=== PATIENT | female | born 1980 | race Caucasian/White ===

== ENCOUNTER 2016-12-23 17:28 | Emergency (ER) | payer BC ==
[2016-12-23] MEDS ORDERED: GI Cocktail Oral Solution 30 ML PO ONE (17:41)
[2016-12-23 17:46] VITALS: BP 127/86
[2016-12-23] MEDS ORDERED: Sodium Chloride 0.9% 10 ML Syringe FLUSH PRN (17:49)
[2016-12-23] MEDS ORDERED: Sodium Chloride 0.9% 1,000 ML IV ONE (17:58)
[2016-12-23] MEDS ORDERED: Ondansetron 4 MG/2 ML SDV IVPUSH ONE (17:58)
[2016-12-23] MEDS ORDERED: Ketorolac 30 MG/ML SDV IVPUSH ONE (18:01)
[2016-12-23 18:47] LABS: CHLORIDE,CL 102 mmol/L (98-107); SODIUM,NA 139 mmol/L (136-145)
[2016-12-23] MEDS ORDERED: Iopamidol 612 MG/ML 100 ML Bottle IV ONE (18:52)
[2016-12-23] MEDS ORDERED: Sodium Chloride 0.9% 100 ML IV ONE (18:52)
[2016-12-23] MEDS ORDERED: Morphine 2 MG/ML Syringe IVPUSH ONE (18:57)
[2016-12-23] MEDS ORDERED: Metoclopramide 10 MG Tab ONE (19:00)
--- NOTE | 2016-12-23 20:27 | EDM.PDOC ---
ED HPI GENERAL MEDICAL PROBLEM - General Chief Complaint: Gastrointestinal Problem Time Seen by Provider: 12/23/16 17:49 - History of Present Illness INITIAL COMMENTS - FREE TEXT/NARRATIVE: DICTATED BY DENZEL ABDI PA-C Middle Epigastric Pain Score (Numeric/FACES): 3 - Related Data Allergies Allergy/AdvReac Type Severity Reaction Status Date / Time No Known Allergies Allergy Verified 12/23/16 17:42 Home Meds: Home Meds Metoclopramide HCl 10 mg PO Q6HR #10 tablet 12/23/16 [Rx] Past Medical History - Past Health History Medical/Surgical History: Denies Medical/Surgical History - Past Surgical History Female Surgical History: Reports: Section Musculoskeletal Surgical History: Reports: Arthroscopic Knee, Other (See Below) Other Musculoskeletal Surgeries/Procedures:: ACL knee Social & Family History - Tobacco Use Smoking Status *Q: Never Smoker - Alcohol Use Days Per Week of Alcohol Use: 1 Number of Drinks Per Day: 1 Total Drinks Per Week: 1 - Recreational Drug Use Recreational Drug Use: No ED ROS GENERAL - Review of Systems Review Of Systems: See Below (DICTATED BY DENZEL ABDI PA-C) ED EXAM, GI/ABD - Physical Exam Exam: See Below (DICTATED BY DENZEL ABDI PA-C) Course - Vital Signs Last Recorded V/S: Last Vital Signs Temp 37.7 C 12/23/16 17:30 Pulse 116 H 12/23/16 17:30 Resp 16 12/23/16 17:30 BP 127/86 12/23/16 17:30 Pulse Ox - Orders/Labs/Meds Orders: Active Orders 24 hr Category Date Time Status Abdomen Pelvis w Cont [CT] Stat Exams 12/23/16 18:52 Taken Sodium Chloride 0.9% [Saline Flush] Med 12/23/16 17:49 Active 10 ml FLUSH ASDIRECTED PRN Peripheral IV Insertion Adult [OM.PC] Routine Oth 12/23/16 17:49 Ordered Medication Orders Sodium Chloride (Saline Flush) 10 ml FLUSH ASDIRECTED PRN PRN Reason: Keep Vein Open Labs: Laboratory Tests 12/23/16 12/23/16 12/23/16 Range/Units 18:03 18:03 18:19 WBC 12.9 H (4.0-10.0) x10^3/uL RBC 4.88 (4.00-5.50) x10^6/uL Hgb 14.1 (12.0-16.0) g/dL Hct 40.4 (33.0-47.0) % MCV 82.8 (78.0-93.0) fL MCH 28.9 (26.0-32.0) pg MCHC 34.9 (32.0-36.0) g/dL RDW Coeff of Abdiaziz 13.1 (10.0-15.0) % Plt Count 214 (130-400) x10^3/uL Neut % (Auto) 86.1 H (50.0-80.0) % Lymph % (Auto) 8.9 L (25.0-50.0) % Oliver % (Auto) 4.0 (2.0-11.0) % Eos % (Auto) 0.8 (0.0-4.0) % Baso % (Auto) 0.2 (0.2-1.2) % PT (9.8-11.8) SEC INR (2.0-3.5) Sodium (136-145) mmol/L Potassium (3.5-5.1) mmol/L Chloride (98-107) mmol/L Carbon Dioxide (21-32) mmol/L BUN (7-18) mg/dL Creatinine (0.55-1.02) mg/dL Est Cr Clr Drug Dosing mL/min Estimated GFR (MDRD) Glucose (74-106) mg/dL Calcium (8.5-10.1) mg/dL Corrected Calcium (8.5-10.1) mg/dL Total Bilirubin (0.2-1.0) mg/dL AST (15-37) U/L ALT (14-59) U/L Alkaline Phosphatase (46-116) U/L C-Reactive Protein (<=0.9) mg/dL Total Protein (6.4-8.2) g/dL Albumin (3.4-5.0) g/dL Globulin Albumin/Globulin Ratio Amylase (25-115) U/L Lipase (73-393) U/L Urine Color Dark yellow H (YELLOW) Urine Appearance Cloudy H (CLEAR) Urine pH 5.5 (5.0-8.0) Ur Specific [place] >=1.030 Urine Protein 30 H (NEGATIVE) mg/dL Urine Glucose (UA) Negative (NEGATIVE) mg/dL Urine Ketones 15 H (NEGATIVE) mg/dL Urine Occult Blood Small H (NEGATIVE) Urine Nitrite Negative (NEGATIVE) Urine Bilirubin Moderate H (NEGATIVE) Urine Urobilinogen 0.2 (0.2) EU/dL Ur Leukocyte Esterase Negative (NEGATIVE) Urine RBC 0-5 (NOT SEEN) /HPF Urine WBC 0-5 (NOT SEEN) /HPF Ur Squamous Epith Cells Few H (NEGATIVE) /HPF Calcium Oxalate Crystal Moderate H (NEGATIVE) /HPF Amorphous Sediment Moderate Urine Bacteria Moderate H (NEGATIVE) /HPF Urine Mucus Many H (NEGATIVE) /LPF Urine HCG, Qual Negative (NEGATIVE) 12/23/16 12/23/16 Range/Units 18:19 18:19 WBC (4.0-10.0) x10^3/uL RBC (4.00-5.50) x10^6/uL Hgb (12.0-16.0) g/dL Hct (33.0-47.0) % MCV (78.0-93.0) fL MCH (26.0-32.0) pg MCHC (32.0-36.0) g/dL RDW Coeff of Abdiaziz (10.0-15.0) % Plt Count (130-400) x10^3/uL Neut % (Auto) (50.0-80.0) % Lymph % (Auto) (25.0-50.0) % Oliver % (Auto) (2.0-11.0) % Eos % (Auto) (0.0-4.0) % Baso % (Auto) (0.2-1.2) % PT 9.8 (9.8-11.8) SEC INR 0.9 L (2.0-3.5) Sodium 139 (136-145) mmol/L Potassium 3.2 L (3.5-5.1) mmol/L Chloride 102 (98-107) mmol/L Carbon Dioxide 25 (21-32) mmol/L BUN 13 (7-18) mg/dL Creatinine 0.9 (0.55-1.02) mg/dL Est Cr Clr Drug Dosing 71.48 mL/min Estimated GFR (MDRD) > 60 Glucose 100 (74-106) mg/dL Calcium 9.4 (8.5-10.1) mg/dL Corrected Calcium 9.64 (8.5-10.1) mg/dL Total Bilirubin 1.8 H (0.2-1.0) mg/dL AST 10 L (15-37) U/L ALT 17 (14-59) U/L Alkaline Phosphatase 108 (46-116) U/L C-Reactive Protein 1.9 H (<=0.9) mg/dL Total Protein 7.2 (6.4-8.2) g/dL Albumin 3.7 (3.4-5.0) g/dL Globulin 3.5 Albumin/Globulin Ratio 1.06 Amylase 53 (25-115) U/L Lipase 113 (73-393) U/L Urine Color (YELLOW) Urine Appearance (CLEAR) Urine pH (5.0-8.0) Ur Specific [place] Urine Protein (NEGATIVE) mg/dL Urine Glucose (UA) (NEGATIVE) mg/dL Urine Ketones (NEGATIVE) mg/dL Urine Occult Blood (NEGATIVE) Urine Nitrite (NEGATIVE) Urine Bilirubin (NEGATIVE) Urine Urobilinogen (0.2) EU/dL Ur Leukocyte Esterase (NEGATIVE) Urine RBC (NOT SEEN) /HPF Urine WBC (NOT SEEN) /HPF Ur Squamous Epith Cells (NEGATIVE) /HPF Calcium Oxalate Crystal (NEGATIVE) /HPF Amorphous Sediment Urine Bacteria (NEGATIVE) /HPF Urine Mucus (NEGATIVE) /LPF Urine HCG, Qual (NEGATIVE) Meds: Medications Generic Name Dose Route Start Last Admin Trade Name Freq PRN Reason Stop Dose Admin Sodium Chloride 10 ml 12/23/16 17:49 Saline Flush FLUSH ASDIRECTED PRN Keep Vein Open Discontinued Medications Generic Name Dose Route Start Last Admin Trade Name Freq PRN Reason Stop Dose Admin Al Hydroxide/Mg Hydroxide 30 ml 12/23/16 17:41 12/23/16 17:48 Gi Cocktail PO 12/23/16 17:42 30 ml ONETIME ONE Administration Sodium Chloride 1,000 mls @ 1,000 mls/hr 12/23/16 17:58 12/23/16 18:20 Normal Saline IV 12/23/16 18:57 1,000 mls/hr .BOLUS ONE Administration Ketorolac Tromethamine 30 mg 12/23/16 18:01 12/23/16 18:24 Toradol IVPUSH 12/23/16 18:02 30 mg ONETIME ONE Administration Morphine Sulfate 1 mg 12/23/16 18:57 12/23/16 19:12 Morphine IVPUSH 12/23/16 18:58 Not Given ONETIME ONE Ondansetron HCl 4 mg 12/23/16 17:58 12/23/16 18:29 Zofran IVPUSH 12/23/16 17:59 4 mg ONETIME ONE Administration Departure - Departure Time of Disposition: 20:24 Disposition: Home, Self-Care 01 Condition: Good Clinical Impression: Ileus, Hepatomegaly - Discharge Information Prescriptions: Metoclopramide HCl 10 mg PO Q6HR #10 tablet Instructions: Ileus, Hepatomegaly Referrals: PCP,Unknown [Primary Care Provider] - Forms: ED Department Discharge Additional Instructions: 1. Stay well hydrated and rest 2. Liquids only for the next 3-4 days 3. Avoid heavy, greasy, fatty foods 4. Take medications as directed until gone 5. Make an appointment to see your Primary for follow up of Ileus and enlarged liver 6. Call with any questions - My Orders Last 24 Hours: My Active Orders 12/23/16 18:52 Abdomen Pelvis w Cont [CT] Stat - Assessment/Plan Last 24 Hours: My Active Orders 12/23/16 18:52 Abdomen Pelvis w Cont [CT] Stat
--- NOTE | 2016-12-23 20:35 | ER ---
Date of Service: 12/23/2016 SUBJECTIVE: Lily presents to the emergency room with complaints of epigastric pain. The patient states that she began experiencing this discomfort at approximately 5 o'clock this morning. She states that she has also had diarrhea and has had approximately 4 episodes of diarrhea. She states that she has taken antacids such as Tums and Pepto-Bismol with no relief. The patient states that she thought the discomfort was secondary to the fact that she consumed "jalapeno poppers" last evening. She states, however, that she has had epigastric pain previously when she was and was diagnosed with gallbladder disease. She stated that she has not had any further evaluation of this and has not had a HIDA scan and states that she has not had any issues since she was . The patient denies any fever or chills. She states that she is nauseated, but has not been experiencing any significant vomiting. PAST MEDICAL HISTORY: None. MEDICATIONS: None. ALLERGIES: NKDA. REVIEW OF SYSTEMS: General: No fever or chills. HEENT: No sore throat, rhinorrhea, or congestion. Respiratory: No shortness breath. Cardiac: Denies any substernal chest pain. GI: Denies any nausea or vomiting. She has had diarrhea. No melena, hematochezia, or hematemesis. : Denies any dysuria. Musculoskeletal: No myalgias or arthralgias. Neurologic: No fainting, blackouts, or lightheadedness. PHYSICAL EXAMINATION: General: This is a 36-year-old female patient, who is in no acute distress. Vital Signs: Temperature is 37.7, pulse rate is 116, blood pressure is 127/86, and respiratory rate is 16. Skin: Warm, pale, and dry. HEENT: Mouth, oral mucosa is dry. No erythema or exudate noted in the hypopharynx. Neck: Supple without masses. There is no lymphadenopathy. Lungs: Clear to auscultation. Heart: Regular rate and rhythm. Abdomen: Soft, diffusely tender in the epigastrium. There are no masses noted. There is no hepatosplenomegaly noted. Extremities: Without edema. LABORATORY DATA: WBCs 12.9, hemoglobin is 14.1, and platelets are 214. Coags: PT is 9.8 and INR is 0.9. Chemistry: Sodium is 139, potassium is 3.2, chloride is 102, bicarb is 25, BUN is 13, creatinine 0.9, creatinine clearance is 71, GFR is greater than 60, glucose is 100, calcium is 9.4, and corrected calcium is 9.64. Total bilirubin is 1.8, AST is 10, ALT is 17, alkaline phosphatase is 108, C-reactive protein is 1.9, total protein is 7.2, amylase is 53, and lipase is 113. She did have a dark cloudy dark yellow cloudy specimen, specific gravity is 1.030, she did have 30 protein, she did have small occult blood and moderate bilirubin. CT scan of the patient's abdomen and pelvis with IV contrast were ordered by Chadwick Sol. Please refer to his dictation regarding the interpretation of the CT report as well as disposition of this patient. EMERGENCY ROOM COURSE: The patient was initially given a GI cocktail, which did little to help the discomfort. She was given Toradol 30 mg IV and Zofran 4 mg IV. She stated that she had minimal improvement in her discomfort. She remained stable my care in the emergency room. ASSESSMENT: Epigastric pain. PLAN: Again, please refer to Chadwick Sol's documentation regarding the disposition of this patient. MWK: 12/23/2016 20:03:59 MODL: 12/23/2016 20:29:13 /[id number]
[2016-12-25] MEDS ORDERED: Iopamidol 612 MG/ML 100 ML Bottle IVPUSH ONE (08:40)
[2016-12-25] MEDS ORDERED: Sodium Chloride 0.9% 100 ML IV SCH (08:45)
== END 2016-12-23 20:45 | disposition home or self-care (01) ==
LOC: VM.ED 17:28
DX: R10.13 Epigastric pain (principal)
CPT/HCPCS: 36415; 74177; 80053; 81001; 81025; 82150; 83690; 85025; 85610; 86140; 99284; A9270; J1885; J2405; J7030; 96361; 96374; 96375; J7050; Q9967